=== PATIENT | female | born 1945 | race Caucasian/White ===

== ENCOUNTER → 2020-06-03 12:51 | Outpatient (CLI) | payer MEDICARE, SELFPAY ==
--- NOTE | ~2020-06-03 | MR_ITS ---
EXAMINATION: MR hip LT wo con DATE: 06/03/2020 14:03 INDICATION: Left hip pain TECHNIQUE: Magnetic resonance imaging (MRI) of the left hip was performed without intravenous contra st. Sequences included full-field axial PD-weighted FS FSE and T1-weighted FSE, coronal of the pelvis with PD-weighted FS FSE, small field of view of the left hip with axial PD-weighted FS FSE, sagitta l PD-weighted FS FSE and coronal PD weighted FS FSE. Additional radial T1-weighted FGR oriented ortho gonal to the acetabular rim were obtained for evaluation of the labrum. COMPARISON: Left hip MRI dated 06/14/2012 and pelvis radiographs dated 11/16/1970 FINDINGS: Bones/labrum/cartilage: Metallic magnetic field artifact associated with a right total hip arthroplasty which obscures the re gion of the vicinity of the right hip and proximal femur. No fracture, avascular necrosis or patholo gic marrow replacing process. Relatively well-defined linear labral tear at the 12:00 position of the left acetabular labrum with more amorphous degenerative tearing of the posterior superior labrum ext ending from the 12:00-10:00 position. Mild left hip osteoarthritis with nonuniform partial thickness cartilage loss with still relatively smooth surface contour and without degenerative subarticular donnie nges. Fluid: Physiologic amount fluid in the left hip joint. No other abnormal fluid collections identified. Soft tissues: Postoperative scarring posterolateral to the greater trochanter of the right hip with mild localized fatty atrophy of the anterior margin of the distal right gluteus stephania muscle. Musculature of the p anthony and proximal thighs is otherwise unremarkable. The left iliopsoas and bilateral gluteal and pro ximal hamstring tendons are normal although evaluation of the right-sided tendons is somewhat limited by the magnetic field artifact. Right iliopsoas tendon is obscured by the artifact and unable to be evaluated. Prominent diverticulosis along the sigmoid colon without adjacent inflammatory change to s uggest diverticulitis. Limited evaluation of visceral organs of the pelvis is otherwise unremarkable. No pathologically enlarged pelvic/inguinal lymphadenopathy. IMPRESSION: 1. Mild left hip osteoarthritis with superior to posterior lateral labral tear/degeneration. 2. Right total hip arthroplasty which limits evaluation of the immediately adjacent bone and soft tis sues. Reviewed, dictated and finalized at location A. IMPRESSION: 1. Mild left hip osteoarthritis with superior to posterior lateral labral tear/ degeneration. 2. Right total hip arthroplasty which limits evaluation of the immediately sara cent bone and soft tissues.
== END ==
PROVIDERS: Visit Provider Orthopaedic Surgery
DX: M25.552 Pain in left hip (principal); M16.12 Unilateral primary osteoarthritis, left hip; S73.192A Other sprain of left hip, initial encounter; Z96.641 Presence of right artificial hip joint
CPT/HCPCS: 73721

== ENCOUNTER 2020-12-11 00:26 | Outpatient (CLI) | payer MEDICARE, SELFPAY ==
[2020-12-11 17:38] LABS: SARS-CoV-2 RNA PCR Negative
== END 2020-12-11 00:27 | disposition home or self-care (01) ==
LOC: ANHCOVIDDT 00:26
PROVIDERS: Family Provider Internal Medicine; PCP Internal Medicine; Visit Provider Orthopaedic Surgery
DX: Z01.812 Encounter for preprocedural laboratory examination (principal); Z20.822 Contact with and (suspected) exposure to COVID-19
CPT/HCPCS: C9803; U0003; U0005

== ENCOUNTER 2020-12-11 07:27 | Outpatient (CLI) | payer MEDICARE, SELFPAY ==
[2020-12-11 07:52] LABS: Hematocrit 45.5 % (37.0-47.0); Hemoglobin 14.9 g/dL (12.0-15.0)
== END 2020-12-11 07:28 | disposition home or self-care (01) ==
LOC: ANHSURGERY 07:34
PROVIDERS: Anesthesiology; Family Provider Internal Medicine; PCP Internal Medicine; Visit Provider Orthopaedic Surgery
DX: Z01.818 Encounter for other preprocedural examination (principal); D64.9 Anemia, unspecified
CPT/HCPCS: 36415; 85014; 85018; C9803; U0003; U0005

== ENCOUNTER 2020-12-14 00:46 | Day surgery (SDC) | payer MEDICARE, SELFPAY ==
[2020-12-03 10:51] VITALS: BMI 25.6
--- NOTE | 2020-12-11 16:09 | WPDANESEPPF ---
Anes - Initial Pre Proc Eval Procedure: Operation Date: 12/14/20 07:30 Proposed Procedures p Debridement Left Hip Trochanteric Bursa, Proceed As Indicated - Eamon May MD Date/Time: 12/11/20 16:09 Surgeon: Eamon May MD Pre Op Diagnosis: Left Hip Trochaneric Bursitis Patient Data Age: 75 Gender: F Height: 1.57 m Weight: 63.63 kg Allergies Allergy/AdvReac Type Severity Reaction Status Date / Time codeine Allergy Mild Rash Verified 12/03/20 10:44 Home Medications Medication Instructions Recorded Confirmed Type citalopram 20 mg PO DAILY 10/22/19 12/03/20 History levothyroxine 125 mcg PO DAILY 10/22/19 12/03/20 History pantoprazole 40 mg PO QAM 10/22/19 12/03/20 History prasterone (dhea) 25 mg capsule 12 mg PO DAILY cap 03/31/20 12/03/20 History red yeast rice 600 mg capsule 600 mg PO DAILY 03/31/20 12/03/20 History Dim 200 mg DAILY 12/03/20 12/03/20 History cholecalciferol (vitamin D3) 125 mcg PO DAILY 12/03/20 12/03/20 History iron 159 mg PO DAILY 12/03/20 12/03/20 History Patient hx anesthesia problems: none Family hx anesthesia problems: none PMFSH Past Medical History Medical History (Updated 12/11/20 @ 16:10 by Chapincito Tyson MD) Anxiety BMI 25.0-25.9,adult BMI 26.0-26.9,adult Chronic GERD Degenerative arthritis of knee, bilateral Depression Greater trochanteric bursitis of left hip Hypothyroidism Surgical History Surgical History H/O thumb surgery History of right hip replacement (~2019) Family History Family History Sibling Cancer Social History Social History Smoking status: Never smoker Second hand tobacco smoke exposure: No Alcohol intake: never Substance use: never Living arrangements: alone Gender identity (if verbalized by the patient): Female Spiritual care concerns: No Anes - Eval Final PreProcedure Day of Procedure 12/11/20 16:09 Patient weight: overweight Heart: regular rate and rhythm Lungs: clear to auscultation and normal air movement Airway: Mallampati scale class II Neurological: alert and oriented Last oral intake: >/= 8 hours ASA classification: II Emergent: no Anesthetic plan: proceed Anesthesia type and monitoring: general LMA and ETT Informed Consent: The patient's anesthetic plan and its attendant risks and benefits were discussed with the patient/family/POA. Questions were solicited and answers provided to the satisfaction of the patient/family/POA.
[2020-12-14] VITALS (8 sets, daily range): BP systolic 109–133; BP diastolic 60–76; PULSE 66–80; RESP 12–20; TEMP 36.7–36.8; O2SAT 96–100
[2020-12-14] MEDS: ACETAMINOPHEN 500 MG TABLET 1000 MG PO (06:54)
[2020-12-14] MEDS: LACTATED RINGERS 1,000 ML 30 ML IV CONT ×2 (06:55→08:36)
[2020-12-14] MEDS: KETOROLAC 15 MG/ML VIAL (*BKC) IV PUSH (07:02)
--- NOTE | 2020-12-14 07:16 | WPDHPUPDATE1 ---
History and Physical Update Update Date/Time: 12/14/20 07:16 History and Physical has been reviewed, including an updated exam of the patient. There are NO changes in the patient's condition. Risks, benefits, and alternatives have been discussed and questions answered. Patient agrees to proceed with procedure.
[2020-12-14] MEDS: ceFAZolin 2 GM/D5W 50 ML 2 GM/50 ML BAG IVPB (07:21)
[2020-12-14] MEDS: BUPIVACAINE/EPINEPHRINE 0.5% 10 ML VIAL 30 ML INFILTRATE (07:53)
[2020-12-14] MEDS: LIDOCAINE HCL 1% LOCAL INJ 10 ML VIAL 100 ML INFILTRATE (07:54)
--- NOTE | 2020-12-14 08:28 | P.OP_ITS ---
Procedure Note - Detailed Date of procedure: 12/14/20 Pre-op diagnosis: Left Hip Trochaneric Bursitis Post-op diagnosis: same Procedure performed: Debridement of left hip greater trochanteric bursa with abductor repair. Placement of pain control infusion pump. Description of procedure: Patient was identified and proper site identified. She was taken to the operating room and transferred to the OR table. After general anesthetic induction and intubation, she was put in the right lateral decubitus position taking care to properly pad position her torso and extremities. Left hip and thigh were prepped and draped in usual sterile fashi on. 10 cc of 1% lidocaine and epinephrine was injected into the subcutaneous tissue in the area of the incision. A short longitudinal incision was made over the greater trochanter. Subcutaneous tissue was sharply dissected full thickness down to the gluteus fascia which was divided in line with the incision. The abductor attachments and greater trochanter were exposed. There was an abundance of thickened bursa which was sharply debrided. The anterior most portion of the abductor was markedly thinned and starting to pull away from the greater trochanter. The tendon was it incised longitudinally in line of the fibers. The prominent portion of the greater trochanter was debrided with a rongeur and a drill was used to create small perforations allowing for some marrow elements to enter into the repair site. The tendon was repaired [id number] fashion with 2. Vicryl suture. The wound was irrigated with sterile antibiotic solution. The subcutaneous tissue and tissue around the ITB band were infiltrated with an additional 20 mL of 1% lidocaine and epinephrine solution. Catheter for the pain pump was placed deep to the fascia and taking care not to entrap it during the closure. The gluteus fascia was reapproximated with 2. Vicryl suture. Deeper layers of the subcu reapproximated with 0 Vicryl. Skin closed with three 0 V lock and tissue adhesive. Catheter for the pain p ump was attached to the reservoir which had been filled with 100 cc of 1% lidocaine running at a 2 cc per hour rate. Sterile dressings were applied. She tolerated the procedure well. She was awakened, extubated transferred to the recovery area in stable condition. There were no known intraoperative complications. Estimated blood loss 5 mL. She received perioperative antibiotics. Anesthesia: GETA Surgeon: Eamon May MD Licensing Court Magistrate: Teresa Shepard Estimated blood loss (mL): 5 Packing: No Pathology: none sent Complications: No immediate complications Condition: stable Disposition: PACU
== END 2020-12-14 10:27 | disposition home or self-care (01) ==
PROVIDERS: Family Provider Internal Medicine; PCP Internal Medicine; Visit Provider Orthopaedic Surgery
PROC: (CPT 27062; principal; 2020-12-14 07:30)
DX: M70.62 Trochanteric bursitis, left hip (principal); E03.9 Hypothyroidism, unspecified; F41.8 Other specified anxiety disorders; K21.9 Gastro-esophageal reflux disease without esophagitis; Z96.641 Presence of right artificial hip joint
CPT/HCPCS: 27062; 27299; 36415; 85014; 85018; A9270; C9803; J0690; J1100; J1885; J2405; J2704; J3010; J7120; U0003; U0005

== ENCOUNTER 2021-03-04 07:57 | Outpatient (RCR) | payer MEDICARE, SELFPAY ==
--- NOTE | 2021-03-04 10:00 | PTOPEVAL ---
PHYSICAL THERAPY EVALUATION AND PLAN OF CARE 03-04-21 Thank you for referring Ml Miller to [facility], for the diagnosis of L hip pain. The evaluation was completed today and she was educated on self care at home, posture/positioning with sleep and yard tasks, HEP and pain management techniques. The plan of care is established for ? 0-2 x/week for 4 weeks. Ml would like to try exercises and activities on her own at home to manage her pain, and is to call if wants any additional therapy treatment sessions. Please review, sign, date and return this plan of care BIN. I agree with and certify that the following plan of care is medically necessary. Referring Physician Date Attending Provider: Eamon May MD *PT Outpatient Evaluation Document 03/04/21 08:05 PIERRE (Rec: 03/04/21 09:10 PIERRE [id number]) Outpatient Past Medical History Past Medical History Source of Past Medical History Recalled from Previous Visit, Confirmed with Patient/Family Neurological History Hx Neurological Disorders No Significant History Cardiovascular History Hx Cardiac Disorders No Significant History Respiratory History Hx Respiratory Disorders No Significant History Gastrointestinal History Hx Cholecystectomy Yes Hx Gastroesophageal Reflux Disease Yes Genitourinary History Hx Genitourinary Disorders No Significant History Musculoskeletal History Hx Joint Replacement Yes: R THR x2, ' and ; Hx Other Musculoskeletal Disorders Yes: LT HIP BURSITIS - surgical debridement Nov- Hematological History Hx Anemia Yes Endocrine History Hx Hypothyroidism Yes HEENT History Hx Cataracts Yes: BILATERALLY REMOVED Hx Deviated Septum Yes: SURGERY Integumentary History Hx Shingles Yes: LT ARM Reproductive History Hx Hysterectomy Yes Hx Other Reproductive Disorders Yes: BILATERAL BREAST IMPLANTS Psychosocial History Hx Anxiety Yes Hx Depression Yes Pain History History of Any Previous or Ongoing No Significant History Instance of Pain Anesthesia History Hx Anesthesia Reactions No Significant History Evaluation Information Problem Diagnosis L hip pain Onset Dec 19, 2020 Subjective Information gradual increase in L hip pain Query Text:As Reported By Patient/ ; after had L surgical Family debridement of greater trochanter, pain in hip better , moved down thigh; no history of back pain; Diagnostic Tests X-Rays For This Problem Yes: negative L hip Prior Level of Function Activity Level (Last 3 Months) Occupation retired Activity o
--- NOTE | 2021-04-12 12:59 | PCPTNOTE ---
PHYSICAL THERAPY DISCHARGE 04-12-21 Attending Provider: Eamon May MD Patient:Ml Miller Date of :1945 Mrs. Miller has not returned for any further treatments since the initial evaluation on 03/04/2021, therefore she will be discharged at this time. The goals were not addressed. Thank you for referring Ml to [facility]. Please review, sign, date and return this discharge summary BIN. I have been updated about the patient's current status and I agree with discharge from the above service at this time. Referring Physician Date
== END 2021-04-12 13:28 | disposition home or self-care (01) ==
LOC: ANHPT 07:57
PROVIDERS: PCP Internal Medicine; Visit Provider Orthopaedic Surgery
DX: M25.552 Pain in left hip (principal); G57.02 Lesion of sciatic nerve, left lower limb
CPT/HCPCS: 97161

== ENCOUNTER 2022-08-29 08:37 | Outpatient (CLI) | payer MEDICARE, SELFPAY ==
--- NOTE | ~2022-08-29 | DEXA_ITS ---
Bone Density Report Name: ONEL LUZ Age: 77 Sex: Female Ethnicity: White Date of : 1945 Indication: postmenopausal; screening for osteoporosis; prior fracture; hysterectomy; Referring Provider: AUSTIN*, CESAR [facility] Study: Bone densitometry was performed. Exam Date: August 29, 2022 Accession number: [id number] Bone Density: Region BMD T-score Z-score Classification AP Spine(L1-L4) 1.011 -0.3 2.1 Normal Femoral Neck (Left) 0.786 -0.6 1.5 Normal Total Hip (Left) 0.933 -0.1 1.7 Normal World Health Organization criteria for BMD impression classify patients as: Normal (T-score at or above -1.0), Osteopenia (T-score between -1.0 and -2.5), or Osteoporosis (T-score at or below -2.5). 10-year Fracture Risk: FRAX not reported because: All T-scores for Spine Total, Hip Total, Femoral Neck at or above -1.0 Prior hip or vertebral fracture Clinical Information Provided by Patient: Have had a previous hip or vertebral fracture Has had a low trauma fracture Has used the following medications: Vitamin D, Calcium Has the following medical conditions: Hysterectomy, hypothyroidism Patient maximum height was 62 Menopause Age: 47 Drinks caffeinated beverages Onset of menses at age 19 Number of children 2 Impression: The patient has normal bone mass. The patient has risk factors, including: previous fracture. Discussion: INCREASED RISK OF FRACTURE DUE TO HISTORY OF FRACTURE. The patient's previous fracture puts the patient at high risk of a future fracture. In untreated patients, the risk of osteoporotic fracture increases approximately two-fold for each 1.0 SD decrease in T-score. Low bone density is not the only risk factor for fracture; also consider factors such as patient's age, frailty or poor health, risk of falling, risk of injury, previous osteoporotic fracture, family history of osteoporosis, cigarette smoking, low body weight, etc. Not everyone with a low trauma fracture has osteoporosis; osteomalacia and other metabolic bone disorders should also be considered. Patients who have osteoporosis should be evaluated for specific diseases and conditions (secondary causes) that may cause or contribute to bone loss and fracture risk. National Osteoporosis Foundation (NOF) recommends pharmacologic intervention for patients with a prior hip or vertebral fracture regardless of BMD T-score. The patient should follow a healthful lifestyle (good nutrition with adequate calcium and vitamin D, and appropriate weight-bearing exercise). Follow-Up: Consider a repeat BMD and Vertebral Fracture Assessment (VFA) exam in 2 years or sooner if medically necessary, to reassess this patient's status. Reported by: PARI on 09/01/2022 7:38:00 AM. Reviewed, dictated and finalized at location ARandi WISEMAN
--- NOTE | ~2022-08-29 | MM_ITS ---
EXAMINATION: MM scrn dallin implant BI w melisa HISTORY: Screening mammogram TECHNIQUE: Craniocaudal and mediolateral oblique 3-D tomosynthesis images with implant displacement a nd synthetic 2-D images were generated. Craniocaudal and mediolateral oblique views of the breasts wi thout implant displacement were obtained using full field digital mammography. CAD analysis was submi tted and interpreted. COMPARISON: 04/18/2019 BREAST PARENCHYMAL COMPOSITION: There are scattered areas of fibroglandular density. FINDINGS: There is no evidence of suspicious mass, calcification, or architectural distortion to sugg est malignancy in either breast. There has been no suspicious interval change. IMPRESSION: 1. No mammographic evidence of malignancy. 2. Recommend routine screening mammography in one year. BI-RADS Category 1: Negative Reviewed, dictated and finalized at location A.
== END 2022-08-29 08:38 | disposition home or self-care (01) ==
LOC: ANHIMG 08:42
PROVIDERS: PCP Internal Medicine; Visit Provider Internal Medicine
DX: Z12.31 Encounter for screening mammogram for malignant neoplasm of breast (principal); Z78.0 Asymptomatic menopausal state; M81.0 Age-related osteoporosis without current pathological fracture
CPT/HCPCS: 77063; 77067; 77080

== ENCOUNTER 2024-09-04 09:59 | Outpatient (CLI) | payer MEDICARE, SELFPAY ==
--- NOTE | ~2024-09-04 | XR_ITS ---
Clinical Indication: Cough PA and lateral views of the chest: Comparison: 06/20/2006 Findings: The lungs are clear, without evidence of focal consolidation or pleural effusion. Cardiome diastinal silhouette is within normal limits. Bones and soft tissues are unremarkable. Impression: Normal chest. Reviewed, dictated and finalized at location . Impression: Normal chest.
== END 2024-09-04 10:00 | disposition home or self-care (01) ==
LOC: MICIMG 10:01
PROVIDERS: PCP Internal Medicine; Visit Provider Internal Medicine
DX: R05.9 Cough, unspecified (principal)
CPT/HCPCS: 71046

== ENCOUNTER 2025-05-07 10:15 | Outpatient (CLI) | payer MEDICARE, SELFPAY ==
--- NOTE | ~2025-05-07 | MR_ITS ---
MRI of the right knee Clinical history: Pain Technique: Coronal proton density and proton density-weighted images, sagittal proton-density and T2 fat-sat images, and axial proton-density fat-saturated images were acquired. Findings: Anterior and posterior cruciate ligament are intact. Medial collateral ligament and the lat eral collateral ligament complex are intact. Popliteus tendon is intact. There is horizontal/oblique tear of the anterior horn of the lateral meniscus extending to the body s egment. No medial meniscal tear seen. 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 Articular cartilage in the medial lateral compartments demonstrate mi nimal thickening. There is osteophyte formation at the lateral joint line. Extensor mechanism is intact. Small joint effusion present. Small Monique cyst present. Impression: Horizontal/oblique tear of the anterior horn and body of the lateral meniscus. Severe degenerative change of the patellofemoral compartment, as detailed above. Mild degenerative ch traci of the medial and lateral compartments. Small joint effusion. Reviewed, dictated and finalized at location . Impression: Horizontal/oblique tear of the anterior horn and body of the lateral meniscus. Severe degenerative change of the patellofemoral compartment, as detailed above . Mild degenerative change of the medial and lateral compartments. Small joint effusion.
== END 2025-05-07 10:16 | disposition home or self-care (01) ==
LOC: MICIMG 10:15
PROVIDERS: PCP Internal Medicine; Visit Provider Orthopaedic Surgery
DX: S83.281A Other tear of lateral meniscus, current injury, right knee, initial encounter (principal); X58.XXXA Exposure to other specified factors, initial encounter; M17.11 Unilateral primary osteoarthritis, right knee; M25.461 Effusion, right knee
CPT/HCPCS: 73721

== ENCOUNTER 2025-07-09 09:30 | Outpatient (RCR) | payer MEDICARE, SELFPAY ==
--- NOTE | 2025-05-28 09:07 | OPREHPOC ---
Outpatient Therapy Plan of Care This is a Multidisciplinary Plan of Care that may contain components documented by all disciplines (PT, OT, and ST.) PT Problem 1 PT Problem #1 Knowledge Deficit PT Goal 1 Goal / Goal Update 1. Patient to demonstrate independence with HEP for improved self-reliance of symptom management. Target Visit 10 PT Goal 1 Goal / Goal Update 1. Patient to decrease subjective reports of pain to <2/10 for improved ADL tolerance. Target Visit 10 PT Problem 3 PT Problem #3 Impaired Functional Mobility PT Goal 1 Goal / Goal Update 1. Pt will report less frequent intense pain episodes in lateral knee causing her to feel unsteady on feet. 2. Pt will report ability to climb 13 stairs in reciprocal pattern with use of handrail without increasing pain levels. Target Visit 10 PT Problem 4 PT Problem #4 Impaired Strength PT Goal 1 Goal / Goal Update 1. Patient to demonstrate Ron knee strength >=5/5 for improved functional stability required for ADLs. 2. Patient to demonstrate Ron hip strength >=4/5 for improved functional stability required for ADLs. Target Visit 10
--- NOTE | 2025-05-28 09:07 | PTOPEVAL1 ---
Assessment and note entered by Guzman Hough PT Evaluation Information Assessment Status Evaluation Diagnosis R knee pain ICD-10 Condition Codes (PT) Pain in right knee M25.561,Pain in left knee M25. 562 Onset chronic Subjective Information Pt reports a history of chronic R knee pain that is affecting her ability to perform stairs, Pt has 13 stairs to reach her upstairs leaving area. Pt states she has 3 bouts of intense knee pain causing her knee to give away and causing her to fall. Pt notes difficulty driving, walking on incline. Pt was seen by Dr. enamorado and received an injection 3 weeks ago. Pt states she will likely have TKA in 3 months. Reported Pain Level Pain Score 1: Self Report Assessment PT Clinical Summary Patient presents to physical therapy with a primary issue of chronic knee pain R worse than L. Patient is seeing orthopedic surgeon and is a candidate for R TKA. Patient demonstrates LE weakness, intense bouts of pain causing her to fall, decreased mobility, gait deficit, and decreased flexibility that limit their ability to perform activities of daily living and functional movements. Patient will benefit from skilled physical therapy to address the above listed deficits and return to prior level of function. Home exercise program instructed and written handout provided, exercises tolerated well with no adverse effects to note post-session. Patient was educated on importance of adherence to home exercise program. Patient was also educated on anatomy, prognosis, home modalities, and plan of care Plan of Care Interventions Electrical Stimulation,Gait Training,Manual Therapy,Neuro Re-education,Therapeutic Activities, Therapeutic Exercise,Self-Care/Home Management, Other PT Services Indicated Yes Treatment Frequency and 2x week 10 visits Duration These treatments will address the objective and functional deficits as defined above. The patient will be advanced safely and appropriately in order for the patient to progress towards his/her prior level of function. Additional exercises will be introduced and as well as a comprehensive home exercise program upon discharge, if needed, ?to ensure carryover of functional gains achieved in the clinic. This treatment plan has been reviewed and agreement upon by the patient.
--- NOTE | 2025-06-06 09:53 | PCPTNOTE ---
Patient canceled therapy this date due to something coming up.
--- NOTE | 2025-06-13 07:53 | PCPTNOTE ---
pt called to cancel this dates appt, something came up
--- NOTE | 2025-07-09 10:16 | PTOPDC ---
Assessment and note entered by Guzman Hough PT Evaluation Information Assessment Status Discharge Diagnosis R knee pain ICD-10 Condition Codes (PT) Pain in right knee M25.561,Pain in left knee M25. 562 Onset chronic Subjective Information Pt reports her symptoms in her R knee feel the same since beginning physical therapy. She notes she has good days and bad days. Pt notes continued difficult with driving, stairs and any prolonged positioning. Pt states the pain is the worst on the lateral side of her knee and around the knee cap. Pt notes she has an appointment with Dr. Varner next week and wants to move forward with surgical options. Reported Pain Level Pain Score 6: Self Report Assessment PT Clinical Summary Patient's R knee symptoms has made little to no change with physical therapy intervention. Pt continues to have increased patellofemoral pain and poor patellar tracking with knee extension and functional movements such as stairs and driving a car. Patient to discharge from physical therapy this date and continue with home exercise program as instructed. Patient states she would like to move forward with potential R TKA. Plan of Care PT Services Indicated No
== END 2025-07-09 12:43 | disposition home or self-care (01) ==
LOC: ANHGOSHPT 09:30
PROVIDERS: PCP Internal Medicine; Visit Provider Orthopaedic Surgery
DX: M17.11 Unilateral primary osteoarthritis, right knee (principal); M25.561 Pain in right knee; M25.562 Pain in left knee
CPT/HCPCS: 97110; 97112; 97140; 97161

== ENCOUNTER 2025-09-01 07:25 | Outpatient (CLI) | payer MEDICARE, SELFPAY ==
--- OUTSIDE RECORDS SUMMARY | 2025-09-01 07:29 | XMS_ITS | Encounter Summary ---
Author Organization [facility] Healthcare Address [address] [place] [address] Care Team Providers Care Sports Equipment Repairer Name Role Phone Jt Perez MD Unavailable [phone] Jt Perez MD Primary Care Provider Reason for Visit * Reason Onset Date Comments READY TO SCHEDULED 12/08/2023 Encounter Details Date Type Department Care Team (Late st Contact Info) Description 12/08/2023 Telephone [facility] Specialty Services [address] [place] [address] Miscellaneous, Not In File READY TO SCHEDULED Social History Tobacco Use Types Packs/Day Years Used Date Smoking Tobacco: Never Smokeless Tobacco: Never AUDIT-C Answer Date Recorded Q1: How often do you have a drink containing alc ohol? Never 03/23/2022 Average Number of Drinks Not on file 022 Q3: How often do you have si x or more drinks on one occasion? 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
--- OUTSIDE RECORDS SUMMARY | 2025-09-01 07:29 | XMS_ITS | Clinical Summary ---
Author Organization [facility] Address [address] [place] [address] Phone Care Team Providers Care Deicer Element Winder Machine Name Role Phone Jt Perez MD Primary Care Provider Brown Morales MD Unavailable [phone] Allergies Active Allergy Reactions Criticality Noted Date Comments Codeine Itching,Nausea Medium 09/25/2019 Midazolam Nausea,Vomiting 01/31/2023 Medications pantoprazole (PROTONIX) 40 MG Tablet Delayed Response Take 40 mg by mouth 2 times daily. 3 9 Active citalopram (CELEXA) 20 MG TabletIndication s:Anxiety Indications: Anxiety 4 9 Active levothyroxine (SYNTHROID) 125 MCG Tablet 150 mcg daily. Ensure 4 9 Active IRON PO Take 1 Tab by mouth daily. Active biotin 300 MCG Tablet Take 300 mcg by mouth daily. Active Red Yeast Rice Extract (RED YEAST RICE PO) Take 1 Cap by mouth daily. Active Nutritional Supplements (DHEA PO) Take 1 Tab by mouth daily. Active ondansetron (Zofran) 4 MG Tablet Patient will be doing split prep of Golytely for colonoscopy. 2 tabs of zofran one hour prior to drinking Golytely, repeat with 2nd part of split dose of Golytely. 4 Tablet 2 Active PEG-3350/Electro lytes 236 g Recon Soln Drink 8 oz every 10 minutes until clear 4000 mL 2 Active other 1 Capsule by Other route daily. DIM (Dindolylmeth ane) Active traMADol (ULTRAM) 50 MG TabletIndication s:Pain Take 1 Tablet by mouth every 8 hours as needed for Moderate or more severe pain. Indications: Pain 12 Tablet Active Active Problems No known active problems Immunizations Immunization Administration Dates Next Due Sars-cov-2 (Covid-19) Vaccine, Unspecified 08/22,02/04/2021,01/14/2021 Family History Medical History Relation Name Comments Cancer Brother Throat Alcohol Abuse Father Chronic Obstructive Pulmonary Disease Father Abdominal Aortic Aneurysm Maternal Grandfather Abdominal Aortic Aneurysm Maternal Grandmother Abdominal Aortic Aneurysm Maternal Uncle Alzheimer's Disease Mother Relation Name Status Comments Brother Father Maternal Grandfather Maternal Grandmother Maternal Uncle Mother Social History Tobacco Use Types Packs/Day Years Used Date Smoking Tobacco: Never Smokeless Tobacco: Never Tobacco Cessation:Counseling Given: Not Answered Alcohol Use Standard Drinks/Week Comments Not Currently 0 (1 standard drink = 0.6 oz pur e alcohol) PHQ-2 Answer Date Recorded PHQ-2 Score 0 09/27/2019 Sexually Active Control Partners Comments Not Currently Comments No Sex and Gender Information Value Date Recorded Sex Assigned at Not on file Legal Sex Female 9:38 PM CDT Gender Identity Not on file Sexual Orientation Not on file 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 Not on file Not on file Not on file Last Filed Vital Signs Vital Sign Reading Time Taken Comments Blood Pressure 141/73 02/13/2025 12:38 PM CDT Pulse 74 02/13/2025 3:04 PM CDT Temperature 36.7 C (98.1 F) 02/13/2025 12:38 PM CDT Respiratory Rate 18 02/13/2025 3:04 PM CDT Oxygen Saturation 97% 02/13/2025 3:04 PM CDT Inhaled Oxygen Concentration - - Weight 56.7 kg (125 lb) 02/13/2025 12:38 PM CDT Height 157.5 cm (5' 2) 02/13/2025 12:38 PM CDT Body Mass Index 22.86 02/13/2025 12:38 PM CDT Plan of Treatment Health Maintenance Due Date Last Done Comments DEXA Bone Density 1945 Hepatitis C Virus (HCV) Screening 1945 TdaP Immunization 1945 Pneumococcal Immunization (5 0+ years) (1 of 1 - PCV) 1997 Respiratory Syncytial Virus (RSV) Immunization (Adult) (1 - 1-dose 75+ series) 2022 Influenza Immunization (#1) 2025 SARS-COV-2 Immunization ( - season) 2025 08/22/2021, 02/04/2021, 01/14/2021 Colonoscopy Discontinued 02/15/2023 Colorectal Cancer Screening Discontinued Zoster Immunization Completed 07/05/2024, 05/10/2024 Cologuard Discontinued Hepatitis B Immunization Aged Out No longer eligible based on patient's age to complete this topic Human Papillomavirus (HPV) Immunization Aged Out No longer eligible based on patient's age to complete this topic Immunochemical Fecal Occult Blood Discontinued Meningococcal Immunization (ACWY) Aged Out No longer eligible based on patient's age to complete this topic Rotavirus Immunization Aged Out No lo nger eligible based on patient's age to complete this topic Insurance MEDIC[place] Care Teams Deicer Element Winder Machine Relationship Specialty Start Date End Date Jt Perez MD [facility] [address] [place] [address] PCP - General Internal Medicine 09/27/19 Brown Morales MD [address] [place] [address] Consulting Physician Gastroenterology 10/20/22
--- OUTSIDE RECORDS SUMMARY | 2025-09-01 07:29 | XMS_ITS | Clinical Summary ---
Author Organization [facility] Healthcare Address [address] [place] [address] Care Team Providers Care Autistic Teacher Name Role Phone Jt Perez MD Unavailable + [phone] Jt Perez MD Primary Care Provider Allergies Active Allergy Reactions Criticality Noted Date Comments Chocolate Headache Low 03/23/2022 Codeine Hives,Itching,Nausea only High 12/30/2015 Lansoprazole Headache Low 03/04/2022 Midazolam Nausea only,Nausea & Vomiting Low 2022 Nuts Headache Low 03/23/2022 Omeprazole Headache Low 03/04/2022 Pantoprazole Headache Low 03/04/2022 Medications iron,carbonyl (IRON CHEWS ORAL) Take by mouth every morning 45 mg OTC supplement Active UNABLE TO FIND Take 1 each by mouth every morning OTC DIM supplement Active biotin 300 mcg tabletIndications :Biotin Deficiency Take 16.6667 tablets by mouth every morning Crush medications for 2 weeks after surgery 04/05/20 Active Additional Information Patient not taking.Reported on 07/23/2024 calcium carbonate (TUMS) 500 mg (200 mg elemental) chewable tabletIndications :Dyspepsia Take 2 tablet/chew tab (1,000 mg total) by mouth as needed for indigestion or heartburn Crush medications for 2 weeks after surgery 04/05/20 Active Additional Information Patient not taking.Reported on 07/23/2024 citalopram (CeleXA) 20 mg tabletIndications :major depressive disorder,anxiety Take 1 tablet (20 mg total) by mouth every morning Crush medications for 2 weeks after surgery 04/05/20 Active levothyroxine (SYNTHROID) 150 mcg tabletIndications :hypothyroidism Take 1 tablet (150 mcg total) by mouth boatswain mate before breakfast Crush medications for 2 weeks after surgery 04/05/20 Active prasterone, dhea, 50 mg capsule Take 1 tablet/capsule by mouth every morning Restart in 2 weeks after surgery 04/19/20 Active Additional Information Patient not taking.Reported on 07/23/2024 red yeast rice 600 mg capsule Take 1 tablet/capsule by mouth every morning Restart in 2 weeks after surgery 0 04/19/20 Active Additional Information Patient not taking.Reported on 07/23/2024 vitamin D3-vitamin K2, MK4, (K2 Plus D3) 1,000-100 unit-mcg tablet Take 1 tablet/capsule by mouth every morning Crush medications for 2 weeks after surgery 04/05/20 Active Additional Information Patient not taking.Reported on 07/23/2024 polyethylene glycol (MIRALAX) 17 gram packetIndications :constipation Take 1 packet (17 g total) by mouth daily 10 packet 04/05/20 Active prochlorperazine (COMPAZINE) 25 mg suppositoryIndica tions:Prevention of Chemotherapy-Gaby edson Nausea and Vomiting Insert 1 suppository (25 mg total) into the rectum every 12 (twelve) hours as needed for nausea or vomiting 12 suppository 2 04/05/20 Active Additional Information Patient not taking.Reported on 07/23/2024 ondansetron ODT (ZOFRAN-ODT) 4 mg disintegrating tabletIndications :Prevention of Post-Operative Nausea and Vomiting Take 1 tablet (4 mg total) by mouth every 8 (eight) hours as needed for nausea or vomiting 20 tablet 1 04/05/20 Active Additional Information Patient not taking.Reported on 07/23/2024 acetaminophen (TYLENOL) solution 160 mg/5 mL Take 31 mL (1,000 mg total) by mouth every 6 (six) hours as needed for pain 473 mL 04/05/20 Active Additional Information Patient not taking.Reported on 07/23/2024 ondansetron ODT (ZOFRAN-ODT) 4 mg disintegrating tabletIndications :Prevention of Post-Operative Nausea and Vomiting Take 1 tablet (4 mg total) by mouth every 8 (eight) hours as needed for nausea or vomiting 20 tablet 3 07/21/20 22 Active Additional Information Patient not taking.Reported on 07/23/2024 oxyBUTYnin XL (DITROPAN-XL) 10 mg 24 hr tablet Take 1 tablet (10 mg total) by mouth daily 30 tablet 08/06/20 25 026 Active oxyBUTYnin XL (DITROPAN-XL) 10 mg 24 hr tablet Take 1 tablet (10 mg total) by mouth daily 30 tablet 07/23/20 24 025 Disconti nued(Reo rder) Active Problems Problem Noted Date Diagnosed Date Vitamin D deficiency 08/18/2023 Impacted cerumen 06/09/2023 Senile osteoporosis 06/10/2022 Hiatal hernia with GERD 04/04/2022 Arthropathy of hand 03/04/2022 Complication of procedure 03/04/2022 Migraine 03/04/2022 Paresthesia 03/04/2022 Pure hypercholesterolemia 03/04/2022 Restless legs 03/04/2022 Rheumatoid arthritis 03/04/2022 Sprain of ankle 03/04/2022 Diverticulitis 12/17/2021 Chest pain 09/25/2019 Depression 09/25/2019 Gastroesophageal reflux disease 09/25/2019 Hyperlipidemia 09/25/2019 Hypothyroidism 09/25/2019 Paronychia of toe 10/15/2018 Anosognosia 04/14/2017 Nonruptured cerebral aneurysm 09/07/2015 Encounters Date Type Department Care Team Description 08/06/2025 Telephone [facility] [address] [facility] [address] [place] [address] Ibis Galindo DO Medication Refill 06/13/2025 7:18 AM CDT - 06/13/2025 11:59 PM CDT Hospital Encounter [facility] [address] [place] [address] Rad, Amh Fluoro Hiatal hernia with GERD Discharge Disposition: Discharge to home or self care 06/03/2025 Orders Only [facility] - [facility] [place] [place] Minimally Invasive Surgery [address] [place] [address] 12th [address], [place] [address] Rios Mendez MD PhD Hiatal hernia with GERD (Primary Dx) from Last 3 Months Immunizations Immunization Administration Dates Next Due Pfizer SARS-CoV-2 Monovalent Vaccination (12+ Yrs) PURPLE 02/04/2021 Surgical History Surgery Date Site/Laterality Comments TOTAL HIP ARTHROPLASTY Right Two R hip replacements Medical History Medical History Date Comments GERD (gastroesophageal reflux disease) Thyroid disease Mood swings Sleep apnea no cpap use Motion sickness Family History Medical History Relation Name Comments Cerebral aneurysm Other 1 Family his tory of cerebral aneurysm - Relation: Aunt (Added by Conv) Cerebral aneurysm Other 2 Family his tory of cerebral aneurysm - Relation: Uncle (Added by Conv) ALS Other 3 Family history of amyotrophic lateral sclerosis - Relation: Uncle (Added by Conv) Anesthesia problems Neg Hx Relation Name Status Comments Other 1 Other 2 Other 3 Social History Tobacco Use Types Packs/Day Years Used Date Smoking Tobacco: Never Smokeless Tobacco: Never Tobacco Cessation:Counseling Given: Not Answered AUDIT-C Answer Date Recorded Q1: How often [...] on file 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 Gender Identity Not on file Sexual Orientation Not on file Obstetrics History Para Term AB IAB SAB Ectopic Multiple Livin g Live Births 2 2 2 0 0 0 0 0 0 0 0 Date Outcome GA Total Labor Labor/2nd/3rd Weight Sex Type Anes PTL Jodee A1 A5 Name Clin 1966 Term Vag-Spo nt 1969 Term Vag-Spo nt Last Filed Vital Signs Vital Sign Reading Time Taken Comments Blood Pressure 126/62 07/23/2024 11:27 AM CDT Pulse 83 04/05/2022 12:45 PM CDT Temperature 36.7 C (98.1 F) 04/05/2022 12:45 PM CDT Respiratory Rate 18 04/05/2022 12:45 PM CDT Oxygen Saturation 96% 04/05/2022 12:45 PM CDT Inhaled Oxygen Concentration - - Weight 62.1 kg (137 lb) 07/23/2024 11:27 AM CDT Height 157.5 cm (5' 2) 07/23/2024 11:27 AM CDT Body Mass Index 25.06 07/23/2024 11:27 AM CDT Plan of Treatment Health Maintenance Due Date Last Done Comments Hepatitis C Screening 1945 Osteoporosis Screening-Bone Density Scan 1945 DTaP/Tdap/Td Vaccine (1 - Tdap) 1958 Hepatitis B Screening 1965 Pneumococcal vaccine 65+ (1 of 1 - PCV) 1997 Zoster Vaccine (1 of 2) 1997 Well Visit 65+ 02/18/2012 Depression Screening 03/09/2023 03/09/2022, 03/09/20 Fall Risk Assessment 04/05/2023 04/05/2022 Covid-19 Vaccine ( season) 2025 08/22/2021, 02/04/2021, 01/14/2021 Influenza Vaccine (#1) 2025 Procedures Procedure Name Priority Date/Time Associated Diagnosis Comments FL ESOPHAGRAM, DOUBLE CONTRAST Schedule Routine, Read Routine (OP Routine) 06/13/2025 8:38 AM CDT Hiatal hernia with GERD from Last 3 Months Results * FL Esophagram, Double Contrast (06/13/2025 8:38 AM CDT) Anatomical Region Laterality Modality Body N/A Radio Fluoroscop y 06/13/2025 9:52 AM CDT Narrative 06/13/2025 10:03 AM CDT EXAM DESCRIPTION: FL ESOPHAGRAM BARIUM SWALLOW TO STOMACH, DOUBLE CONTRAST REASON FOR STUDY: hiatal hernia Per pt, had surgery 2-3 years ago and had esophagus and diaphragm wrapped. Can only eat in small amounts or else gets severe stomach pains Pt had hole in esophagus and diaphragm caused by acid reflux x 2-3 years ago FT 2.3 min Dose 31 mGy RADIATION DOSE: Dose: 31.0 mGy Reference Air Kerma (Ka,r) TECHNIQUE: Under fluoroscopic guidance, patient ingested effervescent granules followed by thick and thin barium. COMPARISON: 04/05/2022, 12/06/2021 FINDINGS: 12.5 mm Barium Tablet: No significant delay in passage. ESOPHAGEAL MOTILITY: Mild age-appropriate esophageal dysmotility. ESOPHAGEAL MUCOSA: No obvious mass, ulceration, or stricture. GASTRO-ESOPHAGEAL JUNCTION: Postoperative changes at the gastroesophageal junction. No significant recurrence of the hiatal hernia. No significant gastroesophageal reflux observed. No significant esophageal dilation or delayed emptying of the esophagus. Trace curvilinear opacification of the fundoplication wrap. NON-GI TRACT STRUCTURES: No significant finding. OTHER: Cholecystectomy clips in the right upper quadrant. IMPRESSION: Postoperative appearance of the gastroesophageal junction status post fundoplication. No recurrent hiatal hernia or significant gastroesophageal reflux. THIS IS AN ELECTRONICALLY VERIFIED FINAL REPORT 06/13/2025 10:03 AM - Electronically signed by Augie Dan M.D. NS: NS Report ID: [id number] Reading Location: [id number] Procedure Note Augie Dan MD - 06/13/2025 EXAM DESCRIPTION: FL ESOPHAGRAM BARIUM SWALLOW TO STOMACH, DOUBLECONTRAST REASON FOR STUDY: hiatal hernia Per pt, had surgery 2-3 years ago and had esophagus and diaphragm wrapped. Can only eat in small amounts or else gets severe stomach pains Pt hadhole in esophagus and diaphragm caused by acid reflux x 2-3 years ago FT2.3 min Dose 31 mGy RADIATION DOSE: Dose: 31.0 mGy Reference Air Kerma (Ka,r) TECHNIQUE: Under fluoroscopic guidance, patient ingested effervescentgranules followed by thick and thin barium. COMPARISON: 04/05/2022, 12/06/2021 FINDINGS: 12.5 mm Barium Tablet: No significant delay in passage. ESOPHAGEAL MOTILITY: Mild age-appropriate esophageal dysmotility. ESOPHAGEAL MUCOSA: No obvious mass, ulceration, or stricture. GASTRO-ESOPHAGEAL JUNCTION: Postoperative changes at thegastroesophageal junction. No significant recurrence of the hiatal hernia. No significant gastroesophageal reflux observed. No significant esophageal dilation or delayed emptying of the esophagus. Trace curvilinear opacification of the fundoplication wrap. NON-GI TRACT STRUCTURES: No significant finding. OTHER: Cholecystectomy clips in the right upper quadrant. IMPRESSION: Postoperative appearance of the gastroesophageal junction status post fundoplication. No recurrent hiatal hernia or significantgastroesophageal reflux. THIS IS AN ELECTRONICALLY VERIFIED FINAL REPORT 06/13/2025 10:03 AM - Electronically signed by Augie Dan M.D. NS: NS Report ID: [id number] Reading Location: [place] [address] Rios Mendez MD PhD IMG FLUOROSCOPY PROCED URES Final Result from Last 3 Months [facility] [employer] CHOICE MEDICARE PPO [facility] MDCR HMO [facility] Address: [address] [address] [place] [address] [employer] MEDICARE HMO [employer] MEDICARE HMO Advance Directives For more information, please contact: [phone] * Full Code (Latest Code Status on File) Date Activated Date Inactivated Comments 04/04/2022 7:16 PM 04/05/2022 6:57 PM Care Teams Autistic Teacher Relationship Specialty Start Date End Date Jt Perez MD [address] [facility] [place] [address] PCP - General 09/15/19 Jt Perez MD 12/28/17
--- OUTSIDE RECORDS SUMMARY | 2025-09-01 07:29 | XMS_ITS | Encounter Summary ---
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
--- OUTSIDE RECORDS SUMMARY | 2025-09-01 07:29 | XMS_ITS | Encounter Summary ---
Author Organization [facility] Address [address] [place] [address] Phone Care Team Providers Care Individual Pension Adviser Name Role Phone Jt Perez MD Unavailable + [phone] Jt Perez MD Primary Care Provider Reason for Visit * Reason Onset Date Comments Scheduling Appointments 05/27/2025 Encounter Details Date Type Department Care Team (Late st Contact Info) Description 05/27/2025 Telephone [facility] Minimally Invasive Surgery [facility] 12th Floor, [place] [address] Rios Mendez MD PhD [address] [place] [address] Scheduling Appointments Social History Tobacco Use Types Packs/Day Years [...] on file 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
--- NOTE | 2025-09-01 11:47 | WPDNEUROLOGY ---
Neurology EEG Report General Information Date of Study: 09/01/25 TEST Electroencephalogram DIAGNOSIS seizure disorder CONDITION OF RECORDING neurodiagnostic lab EEG NUMBER [id number] CLINICAL HISTORY 80 years old with history of generalized epilepsy. She states that she is aware when it is happening and she can also start and make it stop. She states that her right knee shakes when she is driving or sometimes randomly. EEG DESCRIPTION During wakefulness the background activity consists of posterior dominant alpha rhythm at 9-10 hertz with an amplitude of 15-30 microvolts. Anteriorly low amplitude mixed frequency activity was seen. There is a mild anteroposterior gradient. Hyperventilation was performed during which no significant abnormal background changes were seen. Patient did not progress to stage 2 sleep. Photic stimulation was performed during which no significant abnormal background changes were seen. Symmetric drive response was seen at medium flash rates. IMPRESSION This is a normal EEG obtained during awake state.
--- NOTE | 2025-09-01 11:57 | WPDNEUROLOGY ---
Neurology EEG Report General Information Date of Study: 09/01/25 TEST Electroencephalogram DIAGNOSIS seizure disorder CONDITION OF RECORDING intensive care unit, patient intubated and sedated EEG NUMBER [id number] CLINICAL HISTORY 59-year-old with history of multiple seizures. The patient is currently intubated and on sedation. EEG DESCRIPTION The background activity consists of predominant theta activity at 6-7 hertz in posterior head region. There is no significant anteroposterior gradient. At times patient appears to progress to drowsiness with vertex waves were need noted. The patient appears sedated but still at times relatively more alert and muscle tension artifacts appeared in the frontal region. Stage 2 sleep was not recorded. Hyperventilation or photic switch her not performed. Frontal intermittent rhythmic delta activity was seen. No focal or paroxysmal abnormality was seen. IMPRESSION This is an abnormal EEG due to presence of mild diffuse background slowing suggestive of generalized encephalopathy or bihemispheric lesion however no focal or paroxysmal epileptiform abnormality was seen at this time.
== END 2025-09-01 07:26 | disposition home or self-care (01) ==
PROVIDERS: PCP Internal Medicine; Visit Provider Internal Medicine
DX: G40.409 Other generalized epilepsy and epileptic syndromes, not intractable, without status epilepticus (principal)
CPT/HCPCS: 95816

== ENCOUNTER 2025-09-11 07:39 | Outpatient (CLI) | payer MEDICARE, SELFPAY ==
--- NOTE | 2025-09-11 08:57 | ECG_ITS ---
Test Date: 2025-09-11 09:11:40 Measurements Intervals [place] Rate: 45 P: 57 UT: 145 QRS: 46 QRSD: 80 T: 26 QT: 377 QTc: 327 Interpretive Statements SINUS BRADYCARDIA WITH OCCASIONAL VENTRICULAR PREMATURE COMPLEXES WITH OCCASIONAL SUPRAVENTRICULAR PREMATURE COMPLEXES BASELINE ARTIFACT- I, II, III, AVR, AVL, AVF, V1-V6 BORDERLINE ECG No previous ECG available for comparison Electronically Signed On 09-11-2025 09:33:34 CDT by Sujit Lares D.O.
[2025-09-11 09:37] LABS: Hemoglobin A1C 5.0 % (<5.7)
== END 2025-09-11 07:40 | disposition home or self-care (01) ==
LOC: ANHSURGERY 07:43
PROVIDERS: PCP Otolaryngology; Visit Provider Orthopaedic Surgery
DX: M17.11 Unilateral primary osteoarthritis, right knee (principal); Z01.818 Encounter for other preprocedural examination; R94.31 Abnormal electrocardiogram [ECG] [EKG]
CPT/HCPCS: 80307; 83036; 86850; 86900; 86901; 87081; 93005

== ENCOUNTER 2025-09-23 01:01 | Day surgery (SDC) | payer MEDICARE, SELFPAY ==
--- OUTSIDE RECORDS SUMMARY | 2019-12-17 04:00 | XMS_ITS | Continuity of Care Document ---
Author Organization [facility] Address [address] [place] [id number] Phone Care Team Providers Care Medical Billing Instructor Name Role Phone LisaLuba Kim Unavailable Unavailab le Allergies, Adverse Reactions, Alerts Substance Reaction Status Criticality codeine Hives Active No Information Medications Medication Instructions Dosage Effective Dates (start - stop) Status Comments naproxen 500 mg tablet TAKE 1 TABLET BY ORAL ROUTE 2 TIMES EVERY DAY WITH FOOD 500 MG - Active tramadol 50 mg tablet take 1 tablet by o ral route every 6 hours as needed 50 MG - Active citalopram 20 mg tablet take 1 tablet by oral route every day 20 MG - Active levothyroxine 100 mcg tablet take 1 tablet by oral route every day 100 MCG - Active pantoprazole 40 mg tablet,delayed release take 1 tablet by oral route every day 40 MG - Active Procedures Procedure Date X-RAY EXAM HIP UNI W PELVIS 2-3 VIEWS Aron OFFICE/OUTPATIENT VISIT EST X-RAY EXAM HIP UNI W PELVIS 2-3 VIEWS Oc OFFICE/OUTPATIENT VISIT EST Methylprednisolone 40mg/ml inj 19 DRAIN/INJECT JOINT/BURSA Methylprednisolone 40mg/ml inj 19 DRAIN/INJECT JOINT/BURSA X-RAY EXAM HIP UNI W PELVIS 2-3 VIEWS Ju OFFICE/OUTPATIENT VISIT EST POSTOP FOLLOW-UP VISIT X-RAY EXAM HIP UNI W PELVIS 2-3 VIEWS Audrey POSTOP FOLLOW-UP VISIT X-RAY EXAM HIP UNI W PELVIS 2-3 VIEWS Aron OFFICE/OUTPATIENT VISIT EST X-RAY EXAM HIP UNI W PELVIS 2-3 VIEWS Ju OFFICE/OUTPATIENT VISIT NEW Advance Directives Directive Yes / No Effective Date File Name No Information Encounters Encounter Description Practice Location Reason(s) For Visit Diagnoses Date Provider Providers Copied on Encounter OFFICE/OUTPA TIENT VISIT EST [facility], [address], [address], tel:[phone] [facility] Left hip painGreater trochanteric bursitis of left hip 8-202 0 [address]. [address], [id number]. tel:[phone] OFFICE/OUTPA TIENT VISIT EST [facility], [address], [address], tel:[phone] [facility] Status post revision of total hip replacementBod y mass index (BMI) 25.0-25.9, adultGreater trochanteric bursitis of right hipGreater trochanteric bursitis of left hip 5201 9 [address] [place], [id number]. tel:[phone] [facility], [address], [address], tel:[phone] [facility] No Information 8 [address] [place], [id number]. tel:[phone] OFFICE/OUTPA TIENT VISIT EST [facility], [address], [address], tel:[phone] [facility] Status post revision of total hip replacementBod y mass index (BMI) 27.0-27.9, adultStrain of right hip, initial encounter 0-201 8 [address] [place]. [address], [id number]. tel:[phone] [facility], [address] [address], [place], [address], [place] tel:[phone] [facility] Status post revision of total hip replacement 8-201 8 [address] [place]. [address] [address], [place], [place], [id number]. tel:[phone] [facility], [address] [address], [place], [address], [place] tel:[phone] [facility] Status post revision of total hip replacement 2 0- 8 [address] [place]. [address] [address], [place], [place], [id number]. tel:[phone] [facility], [address], [address], [place] tel:[phone] [facility] No Information Jan-0 5-201 8 [address] [place]. [address] [address], [place], [place], [id number]. tel:[phone] [facility], [address] [address], [place], [address], [place] tel:[phone] [facility] Dislocation of right hip, subsequent encounter 2 0 8 [address] [place]. [address] [address], [place], [place], [id number]. tel:[phone] [facility], [address] [address], [place], [address], [place] tel:[phone] [facility] Dislocation of right hip, subsequent encounterEssen tial (primary) hypertensionDi slocation of internal right hip prosthesis, initial encounter b0 6 8 Dheeraj Waters. [address] [place], [place], [id number]. tel:[phone] OFFICE/OUTPA TIENT VISIT EST [facility], [address] [address], [place], [address], [place] tel:[phone] [facility] Status post right hip replacementBod y mass index (BMI) 27.0-27.9, adultEssential (primary) hypertensionDi slocation of right hip, subsequent encounter 8 Jes[address]lita [address]. [address] , [place], [place], [id number]. tel:[phone] OFFICE/OUTPA TIENT VISIT NEW [facility], [address] [facility] [address], [place], [address], tel:[phone] [facility] Right hip painStatus post right hip replacement [address] [place] [address] [address] , [place], [place], [id number]. tel:[phone] Referring Provider: Jt Vega [address] [place] [address], [facility] [place]. tel:[phone] Family History Family Member Type Diagnosis Age At Onset Father Problem (finding) hypertension Mother Problem (finding) hypertension Payers Payer name Insurance type Covered constitution party ID Eliceoa noble(s) Ernesto Ventura O OT [id number] Social History Type Description Quantity Date Captured Comments Alcohol Use Details Unknown Caffeine Use Details Unknown Tobacco Use Status Never smoked tobacco 2019 Smoking Status Never smoker Non-Smoking Tobacco Use Details : No Details Available : No Details Available Sex Female Chief Complaint And Reason For Visit No Information Reason For Referral Reason For Referral No Information Plan Of Treatment Date Type Action Status Goal Lifestyle education regardin g diet completed Goal Lifestyle education regardin g diet completed Goal Lifestyle education regardin g diet completed Goal Lifestyle education regardin g diet completed Referral Ordered: X-RAY EXAM HIP UNI W PELVIS 2-3 VIEWS LT ordered Referral Ordered: X-RAY EXAM HIP UNI W PELVIS 2-3 VIEWS RT ordered History Of Present Illness Encounter Date Complaint History Of Prese nt Illness No Information Functional Status Date Functional Assessmen t No Information Instructions Date Instruction Additional Infor mation Lifestyle education regarding di et Related to Body mass index (BMI) 25.0-25.9, adult Lifestyle education regarding di et Related to Body mass index (BMI) 25.0-25.9, adult Lifestyle education regarding di et Related to Body mass index (BMI) 27.0-27.9, adult Call for increase in pain Relate d to Status post revision of total hip replacement Call for increase in pain Relate d to Status post revision of total hip replacement Hypertension education Related t o Essential (primary) hypertension Discussed treatment options Rela chantelle to Status post right hip replacement Lifestyle education regarding di et Related to Body mass index (BMI) 27.0-27.9, adult Discussed treatment options Rela chantelle to Status post right hip replacement Assessments Type Assessment Date assessment Left hip pain assessment Greater trochanteric bursitis of left hip Patient Care Teams Name Effective Dates (start - stop) Status Members No Information
--- NOTE | 2025-09-11 07:44 | PC.NURSE ---
[facility] has started construction of its new state of the art ER which will open Spring 2026. With this, we anticipate parking may be a challenge for some our surgical patients and families. Parking spaces are limited but are available for all Surgical, obstetrics, and ER patients sharing this lot. If you arrive and find you are having a hard time finding a parking space, please note that we understand the challenges, please drive around the hospital and park near Hospital Entrance 1. When you enter this entrance, you can ask a volunteer to direct or take you back to the surgical waiting area to check in. We appreciate everyone?s understanding of these expected challenges while we build for your future. Report to the Outpatient Waiting Room, entrance under the green pavilion located off [address], at time _6 am on date _09/23/25 . Planned Procedure Time: _7:30 AM .? Time changes happen often and if your time is changed the preop area will call you the afternoon before. - You and your visitor will be asked to self-screen and do not enter if you have any COVID symptoms. Please call surgeon if you need to reschedule. - A mask is optional within the hospital at this time. Patients may have clear liquids (water, carbonated beverages, clear teas, apple juice) until 3 hours prior to surgery( 4:30 AM) with a maximum of 20 ounces. - No food from midnight until time of surgery and no smoking, or chewing tobacco (or any form of nicotine). No chewing gum, candy or mints. - Take only the following medications with a SIP of water on the morning of surgery: __CITALOPRAM,ESCITALOPRAM,,LEVOTHYROXINE,LORAZEPAM DO NOT STOP ANY OF YOUR OTHER PRESCRIPTION MEDICATIONS PRIOR TO SURGERY EXCEPT THE FOLLOWING Hold all vitamins and supplements for 3 days per anesthesiologist.LAST DOSE 09/19/25 [address] CONT[address]UE CELECOXIB PER DR LUCAS BUT DO NOT TAKE MORNING OF SURGERY Medications to discontinue per physician IBUPROFEN 7 DAYS PRE OP PER DR LUCAS 09/15/25 Please no make-up, nail yemeni, hairspray, perfume, deodorant, or body powder the day of surgery.? No jewelry (including any body piercings) or valuables the day of surgery, leave them at home.? Please take a shower or bath the night before, or the morning of, surgery with an antibacterial soap.? Wear comfortable, loose fitting clothing.? Children are encouraged to wear pajamas. - Jewelry must be removed prior to entering the operating room.? Rings and piercings that are not removed may be cut off. - The hospital will not accept responsibility for valuables.? - Please leave all valuables, including medications, at home the day of surgery. If you are going home after surgery, a licensed emergency detail driver must drive you home.? - NO public transportation without another adult if you receive anesthesia. - We recommend that an adult stay with you for 24 hours following discharge. - We also recommend that you do not drive, make important decision, drink alcoholic beverages, or take any drugs that were not prescribed by your health care provider for at least 24 hours after your discharge time. For Pediatric surgeries, we recommend two adults accompany the child home. Follow any additional instructions given to you from your surgeon. VERBAL AND WRITTEN instructions given to _PATIENT AND S.O._SOURAV and asked if any additional questions and then verbalized understanding. Patient advised to call surgeon office or pre surgery nurse liaison [phone] if any additional questions.
[2025-09-11 07:48] VITALS: BMI 24.2
[2025-09-11 08:53] VITALS: BP 118/64; PULSE 62; RESP 18; TEMP 36.9; O2SAT 100
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
[2025-09-23] VITALS (10 sets, daily range): BP systolic 104–136; BP diastolic 51–66; PULSE 68–94; RESP 15–20; TEMP 36.1–36.9; O2SAT 95–100
--- NOTE | ~2025-09-23 | XR_ITS ---
PROCEDURE(S): X-raying the right, one to 2 views INDICATION(S): Postop total knee arthroplasty COMPARISON(S): None. TECHNIQUE: 2 radiographic images were submitted for interpretation. FINDINGS: Bones: There are no fractures seen. There are no destructive lesions or other lesions identified. Joints: There has been total knee arthroplasty with patellar resurfacing. Prosthetic devices have an anatomic alignment. There is air in the soft tissues. IMPRESSION: No acute abnormalities are seen. Postop change Reviewed, dictated and finalized at location A. 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
--- OUTSIDE RECORDS SUMMARY | 2025-09-23 01:04 | XMS_ITS | Clinical Summary ---
Author Organization [facility] Healthcare Address [address] [place] [address] Care Team Providers Care Cytology Supervisor Name Role Phone Jt Perez MD Unavailable + [phone] Jt Perez MD Primary Care Provider Allergies [...] OTC DIM supplement Active biotin 300 mcg tabletIndications: Biotin Deficiency Take 16.6667 tablets by mouth every morning Crush medications for 2 weeks after surgery 04/05/20 Active Additional Information Patient not taking.Reported on 07/23/2024 calcium carbonate (TUMS) 500 mg (200 mg elemental) chewable tabletIndications: Dyspepsia Take 2 tablet/chew tab (1,000 mg total) by mouth as needed for indigestion or heartburn Crush medications for 2 weeks after surgery 04/05/20 Active Additional Information Patient not taking.Reported on 07/23/2024 citalopram (CeleXA) 20 mg tabletIndications: major depressive disorder,anxiety Take 1 tablet (20 mg total) by mouth every morning Crush medications for 2 weeks after surgery 04/05/20 Active levothyroxine (SYNTHROID) 150 mcg tabletIndications: hypothyroidism Take 1 tablet (150 mcg total) by mouth veneer stacker before breakfast Crush medications for 2 weeks [...] on 07/23/2024 polyethylene glycol (MIRALAX) 17 gram packetIndications: constipation Take 1 packet (17 g total) by mouth daily 10 packet 04/05/20 Active prochlorperazine (COMPAZINE) 25 mg suppositoryIndicat ions:Prevention of Chemotherapy-Induc ed Nausea and Vomiting Insert 1 suppository (25 mg total) into the rectum every 12 (twelve) hours as needed for nausea or vomiting 12 suppository 2 04/05/20 Active Additional Information Patient not taking.Reported on 07/23/2024 ondansetron ODT (ZOFRAN-ODT) 4 mg disintegrating tabletIndications: Prevention of Post-Operative Nausea and Vomiting Take 1 [...] 07/23/2024 ondansetron ODT (ZOFRAN-ODT) 4 mg disintegrating tabletIndications: Prevention of Post-Operative Nausea and Vomiting Take 1 tablet (4 mg total) by mouth every 8 (eight) hours as needed for nausea or vomiting 20 tablet 3 07/21/20 22 Active Additional Information Patient not taking.Reported on 07/23/2024 oxyBUTYnin XL (DITROPAN-XL) 10 mg 24 hr tablet Take 1 tablet (10 mg total) by mouth daily 30 tablet 11 08/06/20 25 026 Active Active Problems Problem Noted Date Diagnosed Date [...] Type Department Care Team Description 08/06/[address] 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 Gender Identity Not on file Sexual Orientation [...] 65+ 02/18/2012 Depression Screening 03/09/2023 03/09/2022, 03/09/20 22 Fall Risk Assessment 04/05/2023 04/05/2022 Covid-19 Vaccine ( season) 2025 08/22/2021, 02/04/2021, 01/14/2021 Influenza Vaccine (#1) 2025 [place] [address] [facility] MDCR HMO REF [facility] MEDICARE HMO [employer] MEDICARE HMO Advance Directives For more information, please contact: [phone] * Full Code (Latest Code Status on File) Date Activated Date Inactivated Comments 04/04/2022 7:16 PM 04/05/2022 6:57 PM Care Teams Cytology Supervisor Relationship Specialty Start Date End Date Jt Perez MD [address] [facility] [address] [place] [address] PCP - General 09/15/19 Jt Perez MD 12/28/17
--- OUTSIDE RECORDS SUMMARY | 2025-09-23 01:04 | XMS_ITS | Encounter Summary ---
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
--- OUTSIDE RECORDS SUMMARY | 2025-09-23 01:04 | XMS_ITS | Encounter Summary ---
Author Organization [facility] Address [address] [place] [address] Phone Care Team Providers Care Director Of Sales Marketing Name Role Phone Jt Perez MD Unavailable + [phone] Jt Perez MD Primary Care Provider Reason for Visit * Reason Onset Date Comments Scheduling Appointments 05/27/2025 Encounter Details Date Type Department Care Team (Late st Contact Info) Description 05/27/2025 Telephone [facility] Advanced Medicine ([facility]) [facility] Minimally Invasive Surgery 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
--- OUTSIDE RECORDS SUMMARY | 2025-09-23 01:04 | XMS_ITS | Clinical Summary ---
Author Organization [facility] Address [address] [place] [address] Phone Care Team Providers Care House Furnishings Supervisor Name Role Phone Jt Perez MD Primary Care Provider [phone] Brown Morales MD Unavailable [phone] Allergies Active Allergy Reactions Criticality Noted Date [...] season) 2025 08/22/2021, 02/04/2021, 01/14/2021 Colonoscopy Discontinued 02/15/2023, 02/15/2023 Colorectal Cancer Screening Discontinued Zoster Immunization [...] on patient's age to complete this topic Procedures Procedure Name Priority Date/Time Associated Diagnosis Comments GI IMAGING - COLONOSCOPY Routine 02/15/2023 9:42 AM CDT from Last 3 Months or Most Recently Relevant to Health Maintenance Results * GI IMAGING - COLONOSCOPY (02/15/2023 9:42 AM CDT) Brown Morales MD IMG DIAGNOSTIC ORDERABLES Final Result from Last 3 Months or Most Recently Relevant to Health Maintenance Insurance MEDICARE C [employer] [place] Member Subscriber Plan / Payer (Ef fective 2025-Present) Name:Ml Miller Relation to Subscriber:Self Name:Ml Miller Payer ID:[id number] Group ID:Not on file Type:Not on file Address: [address] [facility], [address] [place] [id number] MEDICARE C HUMANA Care Teams House Furnishings Supervisor Relationship Specialty Start Date End Date Jt Perez MD [address] [place] [address] [address] [place] [address] PCP - General Internal Medicine 09/27/19 Brown Morales MD [address] [place] [address] Consulting Physician Gastroenterology 10/20/22
--- OUTSIDE RECORDS SUMMARY | 2025-09-23 01:04 | XMS_ITS | Encounter Summary ---
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
[2025-09-23] MEDS: ACETAMINOPHEN 500 MG TABLET 1000 MG PO (06:20)
[2025-09-23] MEDS: TRANEXAMIC ACID 1,000MG/ISO100 1,000 MG/100 ML BAG 200 MG IVPB ×2 (06:25→09:53)
[2025-09-23] MEDS: LACTATED RINGERS 1,000 ML 30 ML IV CONT ×2 (06:25→10:57)
[2025-09-23] MEDS: VANCOMYCIN HCL 1,000 MG in SODIUM CHLORIDE 0.9% IV 250 ML 250 MG IVPB (06:25)
[2025-09-23] MEDS: ONDANSETRON INJ 4 MG/2 ML VIAL IV PUSH ×2 (06:55→14:42)
[2025-09-23] MEDS: diazePAM INJ (*CRX) 10 MG/2 ML SYRINGE 5 MG IV PUSH (07:00)
--- NOTE | 2025-09-23 07:09 | WPDANESEPPF ---
Anes - Initial Pre Proc Eval Procedure: Operation Date: 09/23/25 07:30 Proposed Procedures p Right Total Knee Arthroplasty - Jeff Varner MD Date/Time: 09/23/25 07:09 Surgeon: Jeff Varner MD Pre Op Diagnosis: OA right knee Patient Data Age: 80 Gender: F Height: 1.57 m Weight: 59.2 kg Last Vital Signs Temp 36.6 C 09/23/25 06:05 Pulse 71 09/23/25 06:05 Resp 18 09/23/25 06:05 BP 124/66 09/23/25 06:05 Pulse Ox 100 09/23/25 06:05 O2 Del Method Room Air 09/23/25 06:05 Allergies Allergy/AdvReac Type Severity Reaction Status Date / Time propofol (From Diprivan) AdvReac Severe Nausea Verified 09/23/25 06:31 codeine AdvReac Mild Rash Verified 09/23/25 06:31 Home Medications ?Medication ?Instructions ?Recorded ?Confirmed ?Type citalopram 20 mg tablet 20 mg PO DAILY 10/22/19 09/23/25 History prasterone (DHEA) 25 mg capsule 12 mg PO DAILY 03/31/20 09/11/25 History (DHEA) red yeast rice 600 mg capsule 600 mg PO DAILY 03/31/20 09/23/25 History Dim 200 mg BYMOUTH DAILY 12/03/20 09/23/25 History ferrous sulfate, dried 159 mg (45 159 mg PO DAILY 12/03/20 09/11/25 History mg iron) tablet,extended release (iron ER) levothyroxine 150 mcg capsule 150 mcg PO DAILY 06/20/23 09/23/25 History mecobalamin (vitamin B12) 1,000 1,000 mcg PO DAILY 05/22/24 09/23/25 History mcg lozenges lorazepam 0.5 mg tablet 0.5 mg PO PRN PRN anxiety 02/03/25 09/23/25 History minoxidil 2.5 mg tablet 1.25 mg PO DAILY 02/03/25 09/23/25 History oxybutynin chloride 10 mg 10 mg PO DAILY 02/03/25 09/23/25 History tablet,extended release 24 hr trazodone 50 mg tablet 50 mg PO PRN PRN pain 02/03/25 09/23/25 History fluticasone propionate 50 2 spray intranasal DAILY chronic 05/14/25 09/11/25 Rx mcg/actuation nasal seasonal allergic rhinitis #18 mL spray,suspension (Flonase Allergy Relief) celecoxib 200 mg capsule (Celebrex) 200 mg PO DAILY #30 caps 07/16/25 09/23/25 Rx doxycycline hyclate 100 mg tablet 100 mg PO DAILY acute bacterial 09/04/25 09/11/25 Rx bronchitis #10 tabs ofloxacin 0.3 % eye drops 4 drp otic (ear) . q.h.s. chronic 09/04/25 09/11/25 Rx otitis externa #10 mL cholecalciferol (vitamin D3) 250 250 mcg PO DAILY 09/11/25 09/23/25 History mcg (10,000 unit) tablet escitalopram oxalate 20 mg tablet 20 mg PO QAM 09/11/25 09/23/25 History ferrous sulfate 325 mg (65 mg 325 mg PO DAILY 09/11/25 09/23/25 History iron) tablet (Iron (ferrous sulfate)) ibuprofen 200 mg tablet (Advil) 400 mg PO PRN PRN pain 09/11/25 09/23/25 History Patient hx anesthesia problems: none Family hx anesthesia problems: none Results Review: All pre-operative results and documents have been reviewed as part of the pre-operative evaluation. [facility] Past Medical History Medical History Depression Anxiety Chronic GERD Hypothyroidism BMI 26.0-26.9,adult Degenerative arthritis of knee, bilateral BMI 25.0-25.9,adult Surgical History Surgical History History of repair of hiatal hernia Greater trochanteric bursitis of left hip Surgical debridement December 14, 2020 H/O thumb surgery History of right hip replacement (~2019) Family History Family History Sibling Cancer Social History Social History Smoking status: Never smoker Second hand tobacco smoke exposure: No Additional smoking assessment comments: DENIES ANY FORM OF TOBACCO USE Alcohol intake: never Drinks per week: 1 Alcohol use details: occasional Substance use: never Do You Feel Safe in your Home?: Yes Lack of Transportation: No Lack of Food: Never True Current Housing: I Have Housing Concerned About Future Housing: No Difficulty Paying Gas/Electric Bills: No Difficulty Paying for Meds: No Currently Unemployed: No Education: High School Diploma/GED Difficulty w/ Childcare or Family Care: No Living arrangements: alone Gender identity (if verbalized by the patient): Female Spiritual care concerns: No Anes - Eval Final PreProcedure Day of Procedure 09/23/25 07:09 Patient weight: normal Heart: regular rate and rhythm Lungs: clear to auscultation Airway: Mallampati scale class IV Neurological: alert and oriented Last oral intake: >/= 8 hours ASA classification: III Emergent: no Anesthetic plan: proceed Anesthesia type and monitoring: general ETT and standard monitoring Results Review: All pre-operative results and documents have been reviewed as part of the pre-operative evaluation. Informed Consent: The patient's anesthetic plan and its attendant risks and benefits were discussed with the patient/family/POA. Questions were solicited and answers provided to the satisfaction of the patient/family/POA.
--- NOTE | 2025-09-23 07:12 | WPDHPUPDATE1 ---
History and Physical Update Update Date/Time: 09/23/25 07:12 History and Physical has been reviewed, including an updated exam of the patient. There are NO changes in the patient's condition. Risks, benefits, and alternatives have been discussed and questions answered. Patient agrees to proceed with procedure.Patient would also like a tyrell shot in LEFT knee.
[2025-09-23] MEDS: ceFAZolin 2 GM in SODIUM CHLORIDE 0.9% IV 50 ML 100 ML IVPB ×3 (07:36→21:06)
[2025-09-23] MEDS: methylPREDNISolone ACETATE 80 MG/ML VIAL IM (08:08)
[2025-09-23] MEDS: SODIUM CHLORIDE 0.9% IV 37.7 ML, MORPHINE SULFATE INJ (*CRX) 2 MG, ROPivacaine HCL 1% 2... INFILTRATE (08:25)
[2025-09-23] MEDS: LIDOCAINE 1% LOCAL INJ 10 ML VIAL 4 ML INFILTRATE (08:57)
[2025-09-23] MEDS: GENTAMICIN BONE CEMENT REFOBACIN 1 EACH TOPICAL (09:37)
--- NOTE | 2025-09-23 10:43 | P.OP_ITS ---
Procedure Note - Detailed Date of Procedure 09/23/25 Pre-op Diagnosis OA right knee, OA left knee Post-op Diagnosis Same Procedure Performed Right total knee arthroplasty, cortisone injection left knee Surgeon Jeff Varner MD Communication Studies Professor Chito Anesthesia General Description of Procedure patient was brought to the operating room and general anesthesia was administered. She received 2 g of Ancef weight based vancomycin 1 g of TXA preoperatively. Left knee was prepped with ChloraPrep and 80 mg of Depo-Medrol and 4 cc 1% lidocaine were injected into the left knee without difficulty. The right knee was prepped draped usual fashion. She had a degree or 2 of hyperextension under anesthesia flexion 145. Limb was exsanguinated tourniquet elevated to 250 mmHg. A 7 in longitudinal midline incision was used and a vastus medialis splitting approach utilized splitting the medius vastus medialis at the level of superior pole of patella. Partial excision of the infra patellar fat pad was carried out and a quadriceps synovectomy performed. The patella was scalloped with longitudinal grooves in the lateral facet where the thickness in that location measured 14 mm. At the apex of the apical ridge centrally thickness was 20 mm. The patella was carefully cut to 14 mm making a flush cut at the low point of the lateral facet. Bone quality was very good. Protector cap was applied. Next a guide jaron was inserted on femoral canal after aspiration of canal contents using the 5 degree valgus cutting bushing, 8 mm of bone removed the distal femur. Used only 8 because I tried to introduce a bit of flexion to the distal femoral cut to compensate for the posterior angulation of the distal femoral metaphysis. Next the tibial plateau was cut. Meniscal remnants were excised the PCL recessed. We did not released posterior capsule. Flexion gap was assessed and measured 6 mm medially and 11 mm laterally. Therefore an additional 2 mm of bone was removed the distal femur. Flexion gap now measured 8 mm medially and 11 mm laterally. The femoral sizing guide was applied to the distal femur set at 4? of external rotation which matched Whitesides line. We applied the size 60 cutting block and I could see this was going to notch little bit therefore we had to introduced another 1 or 2? of flexion slope on the distal femoral cut and this gave us than a flush cut the anterior cortex using the 60 vanguard cutting block posterior chamfer cuts were made and the size 60 fit proximally line to line with a mm of overhang at the lateral edge of the anterior chamfer. Bone quality was excellent. The tibia was sized to a 63 which fit line to line anteromedial to posterolateral at proper rotation and this was punched. Trialing with the 10 he had a little bit of extra play in flexion and a little bit of hyperextension. The 11 came out to full extension without hyperextension had 1-2 mm of medial opening less than 1 mm lateral opening is and had a mm each of medial lateral opening at 90? with excellent anterior posterior drawer stability. I assessed the distal femoral cut angle and it was only a 4? according to the intramedullary jaorn and 5 degree wing. A it seemed just a little tight laterally in extension therefore an additional mm bone was removed from the lateral femoral condyle transition to the lateral aspect of medial femoral condyle creating a 5 degree anatomic axis valgus alignment the distal femoral cut. Bone proximal to the posterior condy lar portions of the trial was removed and we read trialed and with the 11 the knee came out to full extension with 2 mm medial and 1.5 mm lateral opening. With the arthrotomy towel clipped, the knee came out to full extension with negative bounce 1 mm of medial opening still and excellent stability to anterior posterior clinical trials systems administrator all positions and gravity flexion 145. The patella was sized to a 31 thin and the lug holes drilled lug holes were drilled the femoral component and patellar tracking was perfect throughout range of motion he with tourniquet up. The bone surfaces were prepped with the step drill both on the femur and tibia the bony surfaces thoroughly irrigated and dried. Using 2 batches of methylmethacrylate 1 with gentamicin powder the cement was immediately applied a 63 vanguard tibial component and the size 60 right CR femoral component. Cement was applied the tibial plateau pressurized tibial component fully seated cement applied the femur the femoral component fully seated. The knee was brought to close to full extension with 12 mm 5 and 1 insert. The 31 thin patella was cemented. Tourniquet was released total tourniquet time 103 minutes. After cement hardening excess cement was sought for removed and hemostasis was achieved. EBL was 150 cc. She received 2 additional g of Ancef 1 g TXA. We trialed with the 11 insert and this gave the same stability and range of motion findings as above. The real implant was placed locked with a locking pin range of motion stability patellar tracking reconfirmed. Local anesthetic cocktail was injected into the periarticular soft tissues. Arthrotomy closed with 2. Vicryl and 1. Unidirectional barbed Stratafix suture the split in the vastus closed with 1. Vicryl. Range of motion still 0-145 degrees under gravity. Skin closed with 2 subcutaneous Vicryl 3-0 subcuticular Monocryl and glue. There were no complications. She was sent to recovery room in stable condition. BEATRIZ Billing Surgery - Charge Forward: Surgery Billing ( Cortisone injection left knee, right total knee arthroplasty)
--- NOTE | 2025-09-23 12:25 | ADMGEN ---
This patient, Ml Miller, was admitted to -. Patient/family oriented to hospital policies and general routines including ID bracelet, bed and alarms, visiting hours, pain management, procedures, bathroom and other care routines, personal items, smoking policy, room service/diet, and visiting hours. Information on how to activate the Rapid Response Team has been discussed. Patient/Family are encouraged to report perceived risks to care and to ask questions if they do not understand what they are told or what they should do.
[2025-09-23] MEDS: SODIUM CHLORIDE 0.9% IV 1,000 ML 125 ML IV CONT (13:01)
[2025-09-23] MEDS: ACETAMINOPHEN 500 MG TABLET PO ×4 (13:06→20:32)
[2025-09-23] MEDS: oxyCODONE HCL (*CRX) 2.5 MG TAB IR PO ×3 (13:07→20:32)
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
[2025-09-23] MEDS: KETOROLAC 15 MG/ML VIAL (*BKC) 7.5 MG IV PUSH (15:37)
[2025-09-23] MEDS: VANCOMYCIN HCL 750 MG in SODIUM CHLORIDE 0.9% IV 250 ML 250 MG IVPB (17:10)
[2025-09-23] MEDS: APIXABAN 2.5 MG TABLET PO (20:32)
[2025-09-23] MEDS: CEFDINIR 300 MG CAPSULE PO (20:32)
[2025-09-24 00:27] VITALS: BP 108/56; PULSE 71; RESP 18; TEMP 36.9; O2SAT 97
[2025-09-24] MEDS: ACETAMINOPHEN 500 MG TABLET PO ×2 (04:45→08:23)
[2025-09-24 05:05] VITALS: BP 111/55; PULSE 75; RESP 20; TEMP 36.8; O2SAT 98
[2025-09-24] MEDS: LEVOTHYROXINE SODIUM 150 MCG TABLET PO (05:58)
[2025-09-24] MEDS: ceFAZolin 2 GM in SODIUM CHLORIDE 0.9% IV 50 ML 100 ML IVPB (05:59)
[2025-09-24 06:10] LABS: Hematocrit 34.2 % (37.0-47.0); Hemoglobin 11.0 g/dL (12.0-15.0); Immature Granulocyte Percent A 0.7 % (0-0.5); Lymphocytes Absolute Auto 1.34 K/mm3 (0.9-3.2); Mean Corpuscular HGB Conc 32.2 g/dl (32-36); Mean Corpuscular Hemoglobin 30.1 pg (26-34); Mean Corpuscular Volume 93.7 fl (80-100); Nucleated Red Blood Cells Absolute Auto 0.000 K/mm3 (0.0-0.012); Nucleated Red Blood Cells Perc 0.0 % (0.0-0.2); Platelet Count Result 201 k/mm3 (150-375); Red Blood Count 3.65 M/mm3 (4.2-5.4); White Blood Count 16.6 K/mm3 (4.5-10.0)
[2025-09-24 06:28] LABS: Anion Gap 4 mmol/L (4-12); Blood Urea Nitrogen 17 mg/dL (7-17); Calcium 8.7 mg/dL (8.4-10.2); Carbon Dioxide 24 mmol/L (22-30); Chloride 107 mmol/L (98-107); Estimated CRCL calculation 45 ml/min; Estimated Glomerular Filt Rate > 60; Glucose 115 mg/dL (65-110); Potassium 4.5 mmol/L (3.4-5.0); Sodium 135 mmol/L (137-145)
[2025-09-24] MEDS: VANCOMYCIN HCL 750 MG in SODIUM CHLORIDE 0.9% IV 250 ML 250 MG IVPB (06:37)
[2025-09-24 08:08] VITALS: BP 96/56; PULSE 68; RESP 18; TEMP 37.2; O2SAT 98
--- NOTE | 2025-09-24 08:10 | PM.PNORT ---
Progress Note: A&P Assessment and Plan (1) Status post total right knee replacement: Code(s): Z96.651 - Presence of right artificial knee joint Status: Acute Assessment and Plan: Patient is postop day 1 after right total knee replacement. She is doing very well. Her pain is well controlled. She had nausea yesterday after surgery but this seems to have completely resolved. She feels she can move her knee very easily does a straight leg raise clinically very easily has normal sensory motor function in the right lower extremity. She was up walking last night. She feels comfortable for discharge today after physical therapy. Importance of avoiding resting in the chair to minimize increased swelling was emphasized. Labs look fine. She has mild acute blood loss anemia hemoglobin 11.0. Plan 100 mg Celebrex daily until she is off the Eliquis and then we can increase her Celebrex accordingly. She normally takes 200 mg daily. Also, will planned 7 day course of Cefdiner for extended oral prophylaxis Subjective Subjective Date/Time Seen: 09/24/25 08:10 Objective Data Vital Signs Vital Signs: Vital Signs - 24 hr 09/23/25 10:57 09/23/25 11:15 09/23/25 11:30 Temperature 36.5 C Pulse Rate 94 77 82 Respiratory Rate 20 15 18 Blood Pressure 121/54 L 123/52 L 127/51 L Pulse Oximetry 95 100 100 Oxygen Delivery Simple Face Mask Simple Face Mask Room Air Oxygen Flow Rate 8 8 09/23/25 11:45 09/23/25 12:10 09/23/25 12:25 Temperature 36.2 C L Pulse Rate 78 70 Respiratory Rate 18 17 18 Blood Pressure 130/54 L 136/52 L Pulse Oximetry 100 96 100 Oxygen Delivery Room Air Room Air Oxygen Flow Rate 09/23/25 12:25 09/23/25 12:55 09/23/25 13:51 Temperature 36.5 C 36.3 C L Pulse Rate 68 70 Respiratory Rate 18 17 Blood Pressure 128/57 L 132/58 L Pulse Oximetry 95 97 Oxygen Delivery Room Air Oxygen Flow Rate 09/23/25 17:55 09/23/25 20:32 09/23/25 21:55 Temperature 36.1 C L 36.9 C Pulse Rate 88 73 Respiratory Rate 17 20 Blood Pressure 104/51 L 117/59 L Pulse Oximetry 98 98 Oxygen Delivery Room Air Oxygen Flow Rate 09/24/25 00:27 09/24/25 05:05 09/24/25 08:08 Temperature 36.9 C 36.8 C 37.2 C Pulse Rate 71 75 68 Respiratory Rate 18 20 18 Blood Pressure 108/56 L 111/55 L 96/56 L Pulse Oximetry 97 98 98 Oxygen Delivery Oxygen Flow Rate Intake/Output Intake/Output: Intake & Output 09/21/25 09/22/25 09/23/25 09/24/25 22:59 23:59 23:59 23:59 Intake Total 2009.2 250 Output Total 200 Balance 1809.2 250 Meds/Results Medications: Active Medications Generic Name Dose Route Start Last Admin Trade Name Freq PRN Reason Stop Dose Admin Acetaminophen 500 mg 09/23/25 12:10 09/24/25 04:45 Acetaminophen 500 Mg Tablet PO 500 mg Q4HR YASMEEN Administration Apixaban 2.5 mg 09/23/25 21:00 09/23/25 20:32 Apixaban 2.5 Mg Tablet PO 2.5 mg Q12HR YASMEEN Administration Cefdinir 300 mg 09/23/25 21:00 09/23/25 20:32 Cefdinir 300 Mg Capsule PO 300 mg Q12HR YASMEEN Administration Celecoxib 100 mg 09/24/25 08:00 Celecoxib 100 Mg Capsule PO DAILY@0800 [facility] Ferrous Sulfate 325 mg 09/24/25 12:00 Ferrous Sulfate 325 Mg Tablet BY MOUTH DAILY@1200 [facility] Levothyroxine Sodium 150 mcg 09/24/25 06:30 09/24/25 05:58 Levothyroxine Sodium 150 Mcg Tablet PO 150 mcg DAILY@0630 [facility] Administration Lorazepam 0.5 mg 09/23/25 14:39 Lorazepam (*Crx) 0.5 Mg Tablet PO Q6H PRN Anxiety Ondansetron HCl 4 mg 09/23/25 14:30 09/23/25 14:42 Ondansetron Inj 4 Mg/2 Ml Vial IV PUSH 4 mg Q6H PRN Administration Nausea And Vomiting Oxycodone HCl 2.5 mg 09/23/25 13:00 09/24/25 04:45 Oxycodone Hcl (*Crx) 2.5 Mg Tab Ir PO Not Given Q4HR YASMEEN Oxycodone HCl 2.5 mg 09/23/25 12:10 Oxycodone Hcl (*Crx) 2.5 Mg Tab Ir PO Q4H PRN Pain Rated 4-10 Polyethylene Glycol 17 gm 09/24/25 09:00 Polyethylene Glycol 3350 17 Gm Powd.Pack PO QAM [facility] Senna/Docusate Sodium 2 tab 09/23/25 17:00 09/23/25 16:40 Senna/Docusate Sodium Tablet PO Not Given BID [facility] Vitamin D 250 mcg 09/24/25 09:00 Cholecalciferol (Vitamin D3) 125 Mcg (5,000 Units) Tablet PO DAILY [facility] Radiology Results: ITS Impressions Knee X-Ray 09/23/25 11:14 IMPRESSION: No acute abnormalities are seen. Postop change Labs Labs: Laboratory Results - last 24 hr 09/24/25 05:43 WBC 16.6 H RBC 3.65 L Hgb 11.0 L D Hct 34.2 L MCV 93.7 MCH 30.1 MCHC 32.2 RDW 12.3 Plt Count 201 MPV 10.1 Immature Gran % (Auto) 0.7 H Neut % (Auto) 84.5 H Lymph % (Auto) 8.1 L Calloway % (Auto) 6.6 Eos % (Auto) 0.0 Baso % (Auto) 0.1 L Lymph # (Auto) 1.34 Calloway # (Auto) 1.1 H Eos # (Auto) 0.0 Baso # (Auto) 0.0 Abs Immat Gran (auto) 0.11 H Absolute Neuts (auto) 14.1 H Absolute Nucleated RBC 0.000 Nucleated RBC % 0.0 Sodium 135 L Potassium 4.5 Chloride 107 Carbon Dioxide 24 Anion Gap 4 BUN 17 Creatinine 0.71 Estim Creat Clear Calc 45 Estimated GFR > 60 Glucose 115 H Calcium 8.7
[2025-09-24] MEDS: CELECOXIB 100 MG CAPSULE PO (08:23)
[2025-09-24] MEDS: APIXABAN 2.5 MG TABLET PO (08:23)
[2025-09-24] MEDS: CHOLECALCIFEROL (VITAMIN D3) 125 MCG (5,000 UNITS) TABLET 250 MCG PO (08:23)
[2025-09-24] MEDS: CEFDINIR 300 MG CAPSULE PO (08:23)
== END 2025-09-24 10:43 | disposition home or self-care (01) ==
LOC: ANHSURGERY 05:54 → ANH3MEDSUR 12:26
PROVIDERS: PCP Internal Medicine; Visit Provider Orthopaedic Surgery
PROC: (CPT 27447; principal; 2025-09-23 07:30)
DX: M17.11 Unilateral primary osteoarthritis, right knee (principal); M25.562 Pain in left knee; F32.A Depression, unspecified; E03.9 Hypothyroidism, unspecified; K21.9 Gastro-esophageal reflux disease without esophagitis; F41.9 Anxiety disorder, unspecified; D50.9 Iron deficiency anemia, unspecified; N32.81 Overactive bladder; Z79.1 Long term (current) use of non-steroidal anti-inflammatories (NSAID); Z98.890 Other specified postprocedural states; Z98.82 Breast implant status; Z87.442 Personal history of urinary calculi; Z80.9 Family history of malignant neoplasm, unspecified
CPT/HCPCS: 27447; 20610; 36415; 73560; 80048; 85025; 97110; 97161; 97165; 97530; 97535; J0690; A9270; C1713; C1776; J0166; J1010; J1100; J1885; J2003; J2270; J2405; J2704; J2795; J3010; J3290; J3360; J3373; J7030; J7050; J7120

== ENCOUNTER 2025-10-15 10:15 | Outpatient (RCR) | payer MEDICARE, SELFPAY ==
--- NOTE | 2025-09-26 12:09 | OPREHPOC ---
Outpatient Therapy Plan of Care This is a Multidisciplinary Plan of Care that may contain components documented by all disciplines (PT, OT, and ST.) PT Problem 1 PT Problem #1 Knowledge Deficit PT Goal 1 Goal / Goal Update 1. Patient to demonstrate independence with HEP for improved self-reliance of symptom management. Target Visit 4 PT Problem 2 PT Problem #2 Pain PT Goal 1 Goal / Goal Update 1. Patient to decrease subjective reports of pain to <3/10 for improved ADL tolerance. Target Visit 10 PT Problem 3 PT Problem #3 Impaired Range of Motion PT Goal 1 Goal / Goal Update 1. Patient to demonstrate an increase of R knee AROM of 0-120 deg to improve mobility required for gait/stair negotiation. Target Visit 10 PT Problem 4 PT Problem #4 Impaired Strength PT Goal 1 Goal / Goal Update 1. Pt will demo SLR x 10 with no extensor lag. 2. Patient to demonstrate R strength >=4+/5 for improved functional stability required for ADLs. Target Visit 10
--- NOTE | 2025-09-26 12:09 | PTOPEVAL1 ---
Assessment and note entered by Guzman Hough PT Evaluation Information Assessment Status Evaluation Diagnosis R TKA ICD-10 Condition Codes (PT) Pain in right knee M25.561,Aftercare following joint replacement surgery Z47.1 Onset 09-23-25 Subjective Information Pt presents s/p R TKA on 09-23-[address] Santana . Pt reports no complications with surgery. Pt walked without device prior to surgery. Pt is currently using walker for mobility. Pt doing stairs one at a time with a crutch and SBA from her partner. Pt is currently having mild sleeping troubles as she can not get comfortable. Reported Pain Level Pain Score 6: Self Report Assessment PT Clinical Summary Patient presents to physical therapy S/P R TKA. Patient demonstrates post surgical weakness, pain, decreased mobility, abnormal posture, gait deficit, and decreased flexibility that limit their ability to perform activities of daily living and functional movements. Patient will benefit from skilled physical therapy to address the above listed deficits and return to prior level of function. Home exercise program instructed and written handout provided, exercises tolerated well with no adverse effects to note post-session. Patient was educated on importance of adherence to home exercise program. Patient was also educated on anatomy, prognosis, home modalities, and plan of care. Plan of Care Interventions Electrical Stimulation,Gait Training,Manual Therapy,Neuro Re-education,Therapeutic Activities, Therapeutic Exercise,Other PT Services Indicated Yes Treatment Frequency and 2x week for 10 visits Duration These treatments will address the objective and functional deficits as defined above. The patient will be advanced safely and appropriately in order for the patient to progress towards his/her prior level of function. Additional exercises will be introduced and as well as a comprehensive home exercise program upon discharge, if needed, ?to ensure carryover of functional gains achieved in the clinic. This treatment plan has been reviewed and agreement upon by the patient.
--- NOTE | 2025-10-24 15:32 | PTOPDC ---
Assessment and note entered by Guzman Hough, PT Evaluation Information Assessment Status Discharge - Pt Not Present Diagnosis R TKA ICD-10 Condition Codes (PT) Pain in right knee M25.561,Aftercare following joint replacement surgery Z47.1 Onset 09-23-25 Subjective Information Pt called and stated she had her 4 week follow up with ortho and was cleared to stop formal physical therapy at her discretion. Pt requests discharge Assessment PT Clinical Summary Pt to be discharged from physical therapy at this time per request. Pt displayed progress towards therapy goals but was not formally reassessed . Plan of Care PT Services Indicated No
== END 2025-10-24 15:41 | disposition home or self-care (01) ==
LOC: ANHGOSHPT 10:15
PROVIDERS: PCP Internal Medicine; Visit Provider Orthopaedic Surgery
DX: Z47.1 Aftercare following joint replacement surgery (principal); Z96.651 Presence of right artificial knee joint; M17.11 Unilateral primary osteoarthritis, right knee
CPT/HCPCS: 97110; 97112; 97116; 97140; 97161